=== PATIENT | female | born 1985 | race Caucasian/White ===

== ENCOUNTER → 2024-03-02 | Outpatient (REF) | LOC: M EMP 09:17 | PROVIDERS: ATTEND Family Medicine | DX: Z11.52 Encounter for screening for COVID-19 (principal) ==

== ENCOUNTER 2024-06-21 12:38 | Inpatient (IN) | payer OTHER ==
[~2024-06-21] VITALS: Ht 154.9 cm; Wt 65.6 kg
[2024-06-21 13:31] LABS: HEMATOCRIT 40.1 % (36.0-47.0); HEMOGLOBIN 12.9 g/dl (12.0-15.5); MEAN CORPUSCULAR HEMOGLOBIN 25.9 pg (27.0-33.0); MEAN CORPUSCULAR HGB CONC 32.2 g/dl (32.0-36.5); MEAN CORPUSCULAR VOLUME 80.5 fl (80.0-96.0); PLATELET COUNT, AUTOMATED 304 10^3/uL (150-450); RED BLOOD COUNT 4.98 10^6/uL (4.00-5.40); WHITE BLOOD COUNT 9.8 10^3/uL (4.0-10.0)
[2024-06-21] MEDS ORDERED: PROP10TA56 PO (13:43)
[2024-06-21] MEDS ORDERED: SERT50TA29 PO (13:43)
[2024-06-21] MEDS ORDERED: ATIV1TAB7 PO (13:43)
[2024-06-21] MEDS ORDERED: LAMO100T80 PO (13:43)
[2024-06-21 13:54] LABS: ETHYL ALCOHOL (ETHANOL) 0.003 % (0.000-0.010)
[2024-06-21 13:56] LABS: ALBUMIN 4.1 G/DL (3.2-5.2); ALKALINE PHOSPHATASE 78 U/L (35-104); ALT/SGPT 15 U/L (7.0-40); AST/SGOT 11 U/L (<34); BILIRUBIN,DIRECT 0.2 MG/DL (<0.4); BILIRUBIN,TOTAL 0.9 MG/DL (0.3-1.2); BLOOD UREA NITROGEN 9 MG/DL (9-23); CALCIUM LEVEL 9.8 MG/DL (8.5-10.1); CARBON DIOXIDE LEVEL 26 MMOL/L (20-31); CHLORIDE LEVEL 107 MMOL/L (98-107); GLOMERULAR FILTRATION RATE > 60.0 (>60); GLUCOSE, FASTING 95 MG/DL (60-100); HCG, SERUM QUALITATIVE NEGATIVE (NEGATIVE); POTASSIUM SERUM 3.6 MMOL/L (3.5-5.1); SALICYLATE LEVEL < 3.0 MG/DL (<30); SODIUM LEVEL 143 MMOL/L (136-145); TOTAL PROTEIN 7.2 G/DL (5.7-8.2)
[2024-06-21 14:00] LABS: THYROID STIMULATING HORMONE 2.114 uIU/ML (0.55-4.78)
[2024-06-21 14:43] LABS: AMPHETAMINES LEVEL URINE NEGATIVE (NEGATIVE)
[2024-06-21 14:44] LABS: BARBITURATES URINE NEGATIVE (NEGATIVE); BENZODIAZEPINES URINE NEGATIVE (NEGATIVE); COCAINE METABOLITE URINE NEGATIVE (NEGATIVE); METHADONE URINE NEGATIVE (NEGATIVE); OPIATES URINE NEGATIVE (NEGATIVE); PHENCYCLIDINE URINE NEGATIVE (NEGATIVE)
[2024-06-21 14:47] LABS: CANNABINOIDS URINE POSITIVE (NEGATIVE)
[2024-06-21] MEDS: PROPRANOLOL 10 MG TAB PO SCH (16:35)
[2024-06-21] MEDS: NICOTINE 21MG/24HR 1 EA TRANSDERMAL TD ONE (16:45)
[2024-06-21] MEDS ORDERED: MAALOX 30 ML SUSP *UDC PO PRN (18:15)
[2024-06-21] MEDS ORDERED: ACETAMINOPHEN 325 MG TAB PO PRN (18:15)
[2024-06-21] MEDS ORDERED: diphenhydrAMINE 25MG CAP PO PRN (18:15)
[2024-06-21] MEDS ORDERED: IBUPROFEN 400MG TAB PO PRN (18:15)
[2024-06-21] MEDS ORDERED: MOM 30ML SUSPENSION UDC PO PRN (18:15)
[2024-06-21] MEDS: LORazepam 1 MG TAB PO STA (18:17)
[2024-06-22] MEDS: UNRESOLVED CLARIFICATION ENTRY XX SCH (00:01)
[2024-06-22 06:53] VITALS: BP 118/68; TEMP 98.2; O2SAT 98
[2024-06-22] MEDS ORDERED: HOME MED LIST COMPLETE! XX SCH (13:20)
[2024-06-22] MEDS: NICOTINE 21MG/24HR 1 EA TRANSDERMAL TD SCH (15:52)
[2024-06-22 16:28] VITALS: BP 109/75; TEMP 98.2; O2SAT 98
[2024-06-22 17:29] VITALS: BP 111/76
[2024-06-22] MEDS: PROPRANOLOL 20 MG TAB PO PRN (17:29)
[2024-06-22] MEDS: SERTRALINE HCL 50 MG TAB PO SCH (17:30)
[2024-06-22] MEDS: lamoTRIgine 100MG TAB PO SCH (17:30)
[2024-06-22] MEDS: traZODone 50 MG TAB PO PRN (21:21)
[2024-06-22 23:58] VITALS: BP 143/81; TEMP 97.7; O2SAT 99
[2024-06-23] MEDS: ONDANSETRON 4MG ORAL DISINTEGRATING TAB PO ONE (00:21)
[2024-06-23 06:21] VITALS: BP 102/51; TEMP 98.1; O2SAT 99
[2024-06-23] MEDS ORDERED: DIPH-435 PO (13:08)
== END 2024-06-23 13:55 | disposition home or self-care (01) | DRG 755 ==
LOC: EDBD 12:38 → M ED 12:38 → M ED INP 18:12 → M PSY 21:20
PROVIDERS: ADMIT Psychiatry & Neurology Psychiatry; ATTEND Psychiatry & Neurology Psychiatry
DX: F43.10 Post-traumatic stress disorder, unspecified (principal); R56.9 Unspecified convulsions; F41.1 Generalized anxiety disorder; F31.9 Bipolar disorder, unspecified; Z88.8 Allergy status to other drugs, medicaments and biological substances; Z88.2 Allergy status to sulfonamides; Z79.899 Other long term (current) drug therapy; F60.3 Borderline personality disorder; F63.9 Impulse disorder, unspecified

== ENCOUNTER 2024-07-14 18:32 | Emergency (ER) | payer MEDICAID, OTHER ==
[~2024-07-14] VITALS: Ht 154.9 cm; Wt 64.1 kg
[~2024-07-14 18:32] MED LIST: ATIV1TAB7 PO; DIPH-435 PO; LAMO100T80 PO; PROP10TA56 PO; SERT50TA29 PO
[2024-07-14] MEDS ORDERED: ALLE12TA31 PO (20:05)
[2024-07-14] MEDS ORDERED: AMOX875T2 PO (20:05)
[2024-07-14 20:18] VITALS: BP 102/70; TEMP 97.3; O2SAT 98
== END 2024-07-14 20:20 | disposition home or self-care (01) ==
LOC: M ED 18:32
DX: H60.93 Unspecified otitis externa, bilateral (principal); H92.03 Otalgia, bilateral; R59.9 Enlarged lymph nodes, unspecified; F41.9 Anxiety disorder, unspecified; Z88.2 Allergy status to sulfonamides; Z88.8 Allergy status to other drugs, medicaments and biological substances; Z79.2 Long term (current) use of antibiotics; Z79.899 Other long term (current) drug therapy

== ENCOUNTER 2024-09-02 10:09 | Emergency (ER) | payer OTHER ==
[~2024-09-02] VITALS: Ht 154.9 cm; Wt 69.9 kg
[~2024-09-02 10:09] MED LIST changes: +ALLE12TA31 PO; +AMOX875T2 PO
[2024-09-02] MEDS ORDERED: AMOX400S2 PO (14:31)
[2024-09-02 14:40] VITALS: BP 111/56; TEMP 97.2; O2SAT 99
== END 2024-09-02 14:48 | disposition home or self-care (01) ==
LOC: M ED 10:09
DX: H66.91 Otitis media, unspecified, right ear (principal); N60.32 Fibrosclerosis of left breast; N60.31 Fibrosclerosis of right breast; F41.9 Anxiety disorder, unspecified; Z79.2 Long term (current) use of antibiotics; Z79.899 Other long term (current) drug therapy; Z88.2 Allergy status to sulfonamides; Z88.8 Allergy status to other drugs, medicaments and biological substances

== ENCOUNTER 2024-10-26 04:14 | Emergency (ER) | payer OTHER ==
[~2024-10-26] VITALS: Ht 157.5 cm; Wt 68.6 kg
[~2024-10-26 04:14] MED LIST changes: +AMOX400S2 PO
[2024-10-26 04:55] LABS: BASO % 0.2 % (0.0-1.0); EOS # 0.2 10^3/uL (0.0-0.5); EOS % 1.4 % (0.0-3.0); HEMATOCRIT 44.9 % (36.0-47.0); HEMOGLOBIN 14.1 g/dl (12.0-15.5); LYMPH % 12.5 % (24.0-44.0); MEAN CORPUSCULAR HEMOGLOBIN 25.5 pg (27.0-33.0); MEAN CORPUSCULAR HGB CONC 31.4 g/dl (32.0-36.5); MEAN CORPUSCULAR VOLUME 81.2 fl (80.0-96.0); MONO # 0.5 10^3/uL (0.0-0.8); MONO % 3.1 % (2.0-8.0); NEUTROPHILS # 13.3 10^3/uL (1.5-8.5); NEUTROPHILS % 82.5 % (36.0-66.0); PLATELET COUNT, AUTOMATED 236 10^3/uL (150-450); RED BLOOD COUNT 5.53 10^6/uL (4.00-5.40); WHITE BLOOD COUNT 16.1 10^3/uL (4.0-10.0)
[2024-10-26 06:20] LABS: HCG, SERUM QUALITATIVE NEGATIVE (NEGATIVE); LIPASE 31 U/L (12-53)
[2024-10-26 06:22] LABS: ALBUMIN 4.1 G/DL (3.2-5.2); ALKALINE PHOSPHATASE 83 U/L (35-104); ALT/SGPT 17 U/L (7.0-40); AST/SGOT 20 U/L (<34); BILIRUBIN,DIRECT 0.2 MG/DL (<0.4); BILIRUBIN,TOTAL 0.6 MG/DL (0.3-1.2); BLOOD UREA NITROGEN 14 MG/DL (9-23); CALCIUM LEVEL 9.2 MG/DL (8.5-10.1); CARBON DIOXIDE LEVEL 24 MMOL/L (20-31); CHLORIDE LEVEL 107 MMOL/L (98-107); CREATININE FOR GFR 0.84 MG/DL (0.55-1.30); GLOMERULAR FILTRATION RATE > 90.0 (>60); GLUCOSE, FASTING 123 MG/DL (60-100); POTASSIUM SERUM 3.3 MMOL/L (3.5-5.1); SODIUM LEVEL 144 MMOL/L (136-145); TOTAL PROTEIN 7.6 G/DL (5.7-8.2)
[2024-10-26] MEDS: KETOROLAC 30 MG/ML 1ML VIAL IV ONE (06:48)
[2024-10-26] MEDS: NS (Normal Saline) 0.9% 1,000 ML IV ONE (06:48)
[2024-10-26] MEDS: ONDANSETRON 4MG 2ML VIAL IV ONE (06:48)
[2024-10-26] MEDS ORDERED: ISOVUE-370 76% 100ML VIAL As Ordered ONE (07:03)
[2024-10-26] MEDS: POTASSIUM CHLORIDE 10MEQ SR TABLET PO ONE (10:09)
[2024-10-26] MEDS ORDERED: LORA1TAB23 PO (11:08)
[2024-10-26] MEDS ORDERED: HOME MED LIST COMPLETE! XX SCH (11:10)
[2024-10-26 12:37] VITALS: BP 109/56
[2024-10-26 12:45] VITALS: TEMP 98.7; O2SAT 98
== END 2024-10-26 12:55 | disposition home or self-care (01) ==
LOC: M ED 04:14
DX: A08.4 Viral intestinal infection, unspecified (principal); K76.0 Fatty (change of) liver, not elsewhere classified; F17.200 Nicotine dependence, unspecified, uncomplicated; Z79.899 Other long term (current) drug therapy; Z88.2 Allergy status to sulfonamides; Z88.8 Allergy status to other drugs, medicaments and biological substances
CPT/HCPCS: 74177; 76830; 76856; 80048; 80076; 83690; 84703; 85025; 87486; 87507; 87581; 87633; 87798; 93976; 96361; 96374; 99285; J1885; J2405; Q9967